=== PATIENT | female | born 2000 | race Caucasian/White ===

== ENCOUNTER → 2021-08-09 11:28 | Outpatient (CLI) | payer OTHER, SELFPAY ==
--- NOTE | ~2021-08-09 | US_ITS ---
US abdomen complete EXAMINATION: US Abdomen Complete INDICATION: Generalized abdominal pain PROCEDURE: Realtime High Resolution abdomen ultrasound. COMPARISON: Ultrasound dated 09/19/2017 FINDINGS: There are multiple nonmobile nonshadowing echogenic foci in the gallbladder lumen, consiste nt with polyps measuring 5 mm or less. No gallstones, gallbladder wall thickening or pericholecystic fluid. Common bile duct measures 4 mm. Liver echotexture within normal limits without focal mass. Pancreas within normal limits. Pancreati c tail is obscured by bowel gas. Spleen is unremarkeable. Renal echotexture is within normal limits bilaterally without hydronephrosis, contour deforming mass or renal stone. Right kidney measures 9.8 cm. Left kidney measures 11.2 cm. Visualized aspects of the aorta and IVC are within normal limits. Portal vein is patent. No sonograph ic Adkins's sign indicated by the technologist. IMPRESSION: 1: Gallbladder polyps. Reviewed, dictated and finalized at location A. [facility] IMPRESSION: 1: Gallbladder polyps.
== END ==
PROVIDERS: PCP Family Medicine; Visit Provider Family Medicine
DX: R10.84 Generalized abdominal pain (principal); K82.4 Cholesterolosis of gallbladder
CPT/HCPCS: 76700